=== PATIENT | female | born 1945 | race Caucasian/White ===

== ENCOUNTER 2018-11-13 18:44 | Emergency (ER) | payer MEDICARE, OTHER ==
[~2018-11-13] VITALS: Ht 170.2 cm; Wt 95.7 kg
[~2018-11-13 18:44] MED LIST: ACET500 PO; ASPI325 PO; ASPI81CH PO; ATEN25 PO; Acid Controller20 MG PO; BENAML10/5; BENAML10/5 PO; BENAML20/5 PO; BLADDER MED; BUME1; CULTURELLE1 EACH PO; Cymbalta20 MG PO; DILT30 PO; DULERA 200 MCG/13 GM INH; EXTRA STRENGTH500 MG PO; GUAI600T33 PO; IBUP400 PO; IBUP800 PO; LEVFLO500 PO; LIDO5TP TOP; LIDO700A20 TOP; LOSA50; LOTREL 5/10; MIDO5 PO; MUCOSA400 MG PO; NICO14TP TOP; NICO21TP TOP; PROACE100; SOTO80 PO; SPIR25 PO; VITA D PO; Ventolin Soln3 ML INH; WARF5; WARF5 PO
[2018-11-13] MEDS ORDERED: FENT50TP TOP (20:32)
[2018-11-13] MEDS ORDERED: Cleocin HCl150 MG PO (20:54)
== END 2018-11-13 21:09 | disposition home or self-care (01) ==
LOC: ER 18:44
DX: L03.115 Cellulitis of right lower limb (principal); R60.0 Localized edema; I10 Essential (primary) hypertension; F17.200 Nicotine dependence, unspecified, uncomplicated; Z88.8 Allergy status to other drugs, medicaments and biological substances; Z88.5 Allergy status to narcotic agent; Z88.0 Allergy status to penicillin; Z91.048 Other nonmedicinal substance allergy status; Z88.2 Allergy status to sulfonamides; Z79.899 Other long term (current) drug therapy; Z79.82 Long term (current) use of aspirin
CPT/HCPCS: 93971; 99284-25

== ENCOUNTER 2018-12-25 07:28 | Day surgery (SDC) | payer MEDICARE, OTHER ==
[~2018-12-25 07:28] MED LIST changes: +Cleocin HCl150 MG PO; +FENT50TP TOP
--- NOTE | 2018-12-25 17:13 | NUR ---
LOG BRANDER LAURENCE AND CORINA RN HERE IN [place] TO PLACE POWERGLIDE. ORDERS NOTED. 2 ATTEMPTS BY ABOVE RNS [place]. PT REFUSES NEXT ATTEMPT IN R ARM. [facility] CALLED FOR PICKUP. WILL NOTIFY NURSING STAFF @ [facility]
--- NOTE | 2018-12-25 18:19 | NUR ---
CALL TO VIOLETA, NURSE CARING FOR [facility] @ [facility]. TICKET PULLER LAURENCE NOT ABLE TO PLACE POWERGLIDE IN LUE AND PT VERY ADAMANT THAT SHE DID "NOT WANT ANY MORE" ATTEMPTS. "THEY CAN JUST GIVE ME ORAL PILLS".
== END 2018-12-25 23:31 | disposition home or self-care (01) ==
LOC: ATC 07:28
DX: A49.9 Bacterial infection, unspecified (principal); I73.89 Other specified peripheral vascular diseases; J44.9 Chronic obstructive pulmonary disease, unspecified; I48.2 Chronic atrial fibrillation; I42.1 Obstructive hypertrophic cardiomyopathy; T81.31XA Disruption of external operation (surgical) wound, not elsewhere classified, initial encounter; J96.01 Acute respiratory failure with hypoxia; I13.2 Hypertensive heart and chronic kidney disease with heart failure and with stage 5 chronic kidney disease, or end stage renal disease; I50.32 Chronic diastolic (congestive) heart failure; N18.4 Chronic kidney disease, stage 4 (severe); E78.5 Hyperlipidemia, unspecified; Z95.0 Presence of cardiac pacemaker
CPT/HCPCS: 99211

== ENCOUNTER 2019-03-03 12:51 | Emergency (ER) | payer MEDICARE, OTHER ==
[~2019-03-03] VITALS: Ht 165.1 cm; Wt 127.0 kg
== END 2019-03-03 13:58 | disposition home or self-care (01) ==
LOC: ER 12:51
DX: I87.2 Venous insufficiency (chronic) (peripheral) (principal); I10 Essential (primary) hypertension; J44.9 Chronic obstructive pulmonary disease, unspecified; Z88.8 Allergy status to other drugs, medicaments and biological substances; Z88.5 Allergy status to narcotic agent; Z88.0 Allergy status to penicillin; Z91.048 Other nonmedicinal substance allergy status; Z79.899 Other long term (current) drug therapy; Z79.891 Long term (current) use of opiate analgesic; Z79.82 Long term (current) use of aspirin; Z87.891 Personal history of nicotine dependence
CPT/HCPCS: 93005; 93010; 99283-25

== ENCOUNTER → 2019-05-12 | Outpatient (CLI) | payer MEDICARE, OTHER ==
[2019-05-12 16:01] LABS: Source, Urine Clean Catch
[2019-05-12 16:31] LABS: Appearance, Urine Cloudy (Clear); Color, Urine Yellow (P-Yellow); Glucose Qualitative, Urine Neg (Normal); Ketones, Urine Neg (Neg); Leukocyte Esterase, Urine 1+ (Neg); Nitrite, Urine Pos (Neg); Protein, Urine Trace (Neg); Urobilinogen, Urine NORM (Normal)
[2019-05-12 16:32] LABS: Bacteria Many /hpf; Bilirubin, Urine Neg (Neg); Blood, Urine Neg (Neg); Red Blood Cells, Urine 0-2 /hpf (0-2); Squamous Epithelial Cells Few /hpf (Few); White Blood Cells, Urine TNTC /hpf (0-5)
[2019-05-12 17:48] LABS: Protein, Urine Random 90.1 mg/dL (0.0-11.9)
[2019-05-12 17:49] LABS: Creatinine, Urine Random 87.6 mg/dL (27.00-270.00)
== END | disposition home or self-care (01) ==
LOC: LAB EV 13:30
PROVIDERS: Internal Medicine
DX: N17.9 Acute kidney failure, unspecified (principal)
CPT/HCPCS: 81001; 82570; 84156

== ENCOUNTER 2020-10-10 10:40 | Emergency (ER) | payer MEDICARE, OTHER ==
[~2020-10-10] VITALS: Ht 170.2 cm; Wt 78.4 kg
[2020-10-10] MEDS ORDERED: CLIN300 PO (11:46)
== END 2020-10-10 12:12 | disposition home or self-care (01) ==
LOC: ER 10:40
DX: S81.811A Laceration without foreign body, right lower leg, initial encounter (principal); J44.9 Chronic obstructive pulmonary disease, unspecified; I11.0 Hypertensive heart disease with heart failure; I50.9 Heart failure, unspecified; Z95.0 Presence of cardiac pacemaker; Z87.891 Personal history of nicotine dependence; Z79.899 Other long term (current) drug therapy; Z79.82 Long term (current) use of aspirin; Z88.5 Allergy status to narcotic agent; Z88.8 Allergy status to other drugs, medicaments and biological substances; Z91.02 Food additives allergy status; W22.8XXA Striking against or struck by other objects, initial encounter
CPT/HCPCS: 96372; 99282; A9270; J3010

== ENCOUNTER 2020-12-08 10:13 | Emergency (ER) | payer MEDICARE, OTHER ==
[~2020-12-08] VITALS: Ht 170.2 cm; Wt 77.1 kg
[~2020-12-08 10:13] MED LIST changes: +CLIN300 PO
[2020-12-08 11:01] LABS: BASOPHILS ABSOLUTE AUTO 0.04 K/mm3 (0.00-0.23); BASOPHILS PERCENT AUTO 0 % (0-2); EOSINOPHILS ABSOLUTE AUTO 0.01 K/mm3 (0.00-0.68); EOSINOPHILS PERCENT AUTO 0 % (0-6); Hematocrit 31.7 % (33.0-51.0); Hemoglobin 11.1 g/dL (11.5-16.0); IMMATURE GRAN ABSOLUTE AUTO 0.17 K/mm3 (0.00-0.10); IMMATURE GRAN PERCENT AUTO 1 % (0-1); LYMPHOCYTES ABSOLUTE AUTO 0.63 K/mm3 (0.84-5.20); LYMPHOCYTES PERCENT AUTO 3 % (21-46); MONOCYTES ABSOLUTE AUTO 0.67 K/mm3 (0.16-1.47); MONOCYTES PERCENT AUTO 4 % (4-13); Mean Corpuscular HGB 37.2 pg (26.0-34.0); Mean Corpuscular Volume 106 fL (80-100); Mean Platelet Volume 12.4 fL (9.1-12.4); NEUTROPHILS ABSOLUTE AUTO 17.79 K/mm3 (1.96-9.15); NEUTROPHILS PERCENT AUTO 92 % (41-73); NRBC ABSOLUTE 0.05 K/mm3 (0.00-0.02); NRBC Auto 0.3 /100 WBC (0.0-0.2); Platelet Count 92 K/mm3 (150-400); RDW Coefficient Variation 15.5 % (11.7-14.2); RDW Standard Deviation 61.6 fL (35.1-46.3); Red Blood Cell Count 2.98 M/mm3 (3.80-5.20); White Blood Cell Count 19.31 K/mm3 (4.00-11.30)
[2020-12-08 11:16] LABS: Albumin/Globulin Ratio 0.7 (0.8-1.8); Bilirubin, Total 0.6 mg/dL (0.1-1.0); Bun/Creatinine Ratio 9.9 (12.0-20.0); Calcium, Blood 8.1 mg/dL (8.5-10.1); Globulin, Blood 4.2 g/dL (2.2-4.0); Potassium, Blood 4.2 mmol/L (3.5-5.5); Total Protein, Blood 7.2 g/dL (6.4-8.2)
== END 2020-12-08 14:25 | disposition home or self-care (01) ==
LOC: ER 10:13
PROVIDERS: Physician Assistant
DX: N17.9 Acute kidney failure, unspecified (principal); L03.115 Cellulitis of right lower limb; J44.9 Chronic obstructive pulmonary disease, unspecified; I11.0 Hypertensive heart disease with heart failure; I50.9 Heart failure, unspecified; F17.210 Nicotine dependence, cigarettes, uncomplicated; Z79.899 Other long term (current) drug therapy; Z88.2 Allergy status to sulfonamides; Z88.8 Allergy status to other drugs, medicaments and biological substances; Z88.5 Allergy status to narcotic agent; Z79.82 Long term (current) use of aspirin
CPT/HCPCS: 36415; 80053; 83605; 85025; 87070; 87075; 87205; 99283